=== PATIENT | male | born 1950 | race Caucasian/White ===

== ENCOUNTER → 2016-12-03 | Outpatient (CLI) | payer MEDICARE, BC ==
[~2016-12-03] MED LIST: AMLO5TAB4 PO; VALS1TAB82 PO
== END | disposition home or self-care (01) ==
LOC: HKI 09:55 → MERGE 09:55
PROVIDERS: ATTEND Orthopaedic Surgery
DX: M25.552 Pain in left hip (principal); M16.12 Unilateral primary osteoarthritis, left hip
CPT/HCPCS: G0463

== ENCOUNTER 2016-12-11 08:41 | Inpatient (IN) | payer MEDICARE, BC ==
[~2016-12-11] VITALS: Ht 172.7 cm; Wt 72.2 kg
[2016-12-11] VITALS (20 sets, daily range): BP systolic 101–156; BP diastolic 57–86; PULSE 58–80; RESP 10–21; Ht 172.7 cm; Wt 72.2 kg
[~2016-12-11 08:41] MED LIST changes: +BUPIVACAINE LIPOSOME/PF 266 MG/20 ML VIAL INFIL SCH; +CEFAZOLIN 1 GM INJ ONE; +CEFAZOLIN 2GM/50 ML (PMX) 50 ML X1 BEFORE INCISION IVPB SCH; +CELECOXIB 400 MG PO X1 DOSE PO SCH; +DEXAMETHASONE 4 MG/ML 1 ML INJ ONE; +EXPAREL NOTE (BUPIVICAINE LIPOSOMAL) XX SCH; +FENTAnyl 50 MCG/ML VIAL ONE; +GLYCOPYRROLATE 0.4 MG INJ ONE; +LIDOCAINE 2% (SDV) 5 ML INJ ONE; +MIDAZOLAM 1 MG/ML 2 ML INJ ONE; +NEOSTIGMINE 3 MG/3 ML SYRINGE ONE; +ONDANSETRON 4 MG INJ ONE; +PAIN COCKTAIL-CEFUROXIME IRR SCH; +PREGABALIN 300 MG PO X1 PO SCH; +PROPOFOL 20 ML ONE; +ROCURONIUM 50 MG INJ ONE; +SOD CHLORIDE 0.9% IV SCH; +SOD CHLORIDE 0.9% IVPB SCH; +SUCCINYLCHOLINE CHLORIDE 100 MG/5 ML SYG IV ONE; +TRANEXAMIC ACID IV SCH; +TRANEXAMIC ACID IVPB SCH; +oxyCODONE (CR) 10 MG TAB [oxyCONTIN] X1 DOSE PO SCH; +traMADOL 50 MG TAB X 1 DOSE PO SCH
[2016-12-11] MEDS ORDERED: FOLI-49 PO (09:02)
[2016-12-11] MEDS ORDERED: ATOR40TA68 PO (09:02)
[2016-12-11] MEDS ORDERED: METF500T4 PO (09:03)
[2016-12-11] MEDS ORDERED: POLYMYXIN B 500000 UNIT INJ ONE (10:03)
[2016-12-11] MEDS ORDERED: VANCOMYCIN 1 GM INJ ONE (10:03)
--- NOTE | 2016-12-11 10:07 | HPN ---
Date/Time of Note Date/Time of Note DATE: 12/11/16 TIME: 10:07 Interval H&P Admission Note Pt. seen H&P reviewed: No system changes No change from H&P on 12/04/16 by YANIV Orta ERIK N. MD December 11, 2016 10:07
[2016-12-11] MEDS ORDERED: hydrALAzine 20 MG INJ ONE (11:08)
[2016-12-11] MEDS ORDERED: LABETALOL HCL 20MG INJ ONE (11:11)
[2016-12-11] MEDS ORDERED: BACITRACIN 50000 UNITS INJ IRR ONE (11:38)
[2016-12-11] MEDS ORDERED: FUROSEMIDE 20 MG INJ ONE (12:31)
--- NOTE | 2016-12-11 13:09 | OPR ---
Date/Time of Note Date/Time of Note DATE: 12/11/16 TIME: 13:08 Operative Report Free Text/Dictation Dictation # [id number] Procedure Date: December 11, 2016 Preoperative Diagnosis Left Hip OA Postoperative Diagnosis Same Operation Performed Left Anterior CANELO Surgeon: JACK LEWIS MD mortgage loan assistant: UMM C[place]AND PA-C Anesthesia: general, spinal Anesthesiologist: SANDEEP ECHEVERRIA MD Estimated Blood Loss: 250 - 300 ml's Specimens Femoral Head Tubes/Drains Hemovac x 1 Complications: None Pt Condition Post Procedure: stable Disposition: PACU JACK LEWIS MD December 11, 2016 13:09
[2016-12-11] MEDS ORDERED: MAGNESIUM HYDROXIDE 30ML CUP PO PRN (13:30)
[2016-12-11] MEDS ORDERED: BISACODYL 10 MG SUPP PR PRN (13:30)
[2016-12-11] MEDS ORDERED: NA PHOSPHATE/BIPHOS 133 ML ENEMA PR PRN (13:30)
[2016-12-11] MEDS ORDERED: HYDROCODONE/APAP (5/325) TAB PO PRN ×2 (13:30)
[2016-12-11] MEDS ORDERED: ONDANSETRON 4 MG INJ IV PRN (13:30)
[2016-12-11] MEDS ORDERED: DIPHENHYDRAMINE 25 MG CAP PO PRN (13:30)
[2016-12-11] MEDS ORDERED: HYDROmorphONE 1 MG/ML SYG IV PRN (13:30)
--- NOTE | 2016-12-11 13:33 | RADRPT ---
PROCEDURE: Intraoperative imaging of the left hip with fluoroscopy. CLINICAL INDICATION: Left hip pain. Intraoperative. TECHNIQUE: 16 images of the left hip were obtained in the operating room with an image intensifier . No radiologist was in attendance. 0.8 minutes of fluoroscopy time was used. COMPARISON: No prior study is available for comparison. FINDINGS: Images demonstrate placement of a total left hip arthroplasty. IMPRESSION: 1. Satisfactory intraoperative imaging of the left hip. RPTAT: QQ .Duglas Simms MD, MD Date Time Electronically viewed and signed by .Duglas Simms MD, on 12/11/2016 13:32 .R/
--- NOTE | 2016-12-11 13:40 | PN ---
Date/Time of Note Date/Time of Note DATE: 12/11/16 TIME: 13:38 Assessment/Plan Lines/Catheters IV Catheter Type (from Nrsg): Peripheral IV Assessment/Plan Assessment/Plan Stable in PACU, s/p left anterior CANELO -continue abx until drain removed -pain meds as needed -ASA/SCDs for DVT prophylaxis -OOB with PT -check AM labs -monitor drain -d/c sebastian in AM XR of the left hip shows good alignment with no evidence of fracture or dislocation Subjective 24 Hr Interval Summary Stable in PACU. Moving extremities. Denies pain. Exam/Review of Systems Vital Signs Vitals Vital Signs Date Time Temp Pulse Resp B/P Pulse Ox O2 Delivery O2 Flow Rate FiO2 12/11/16 13:22 98.2 12/11/16 08:45 77 16 156/86 96 Room Air Exam Free Text/Dictation Hemovac: minimal Dressing dry Incision clean, dry, and intact without redness or drainage 12/12 Quadriceps, Tibialis Anterior, EHL, Gastroc, Soleus, Peroneals Normal sensation Palpable DT/PT, CR <2 sec No distal edema UMM C[facility]AND PA-C December 11, 2016 13:40
--- NOTE | 2016-12-11 13:41 | RADRPT ---
PROCEDURE: XR Pelvis. CLINICAL INDICATION: Pelvic pain. TECHNIQUE: Single AP view of the pelvis. COMPARISON: Intraoperative imaging of the left hip done earlier the same day. FINDINGS: The right hip is unremarkable. There is a new left hip total arthroplasty which appears satisfactor y. Left lateral skin sejal and surgical drain are noted. There is gas in the soft tissues overly ing the left hip. A Crawley catheter is present in the bladder. There is no lytic lesion. The upper pelvis is not included on the image. IMPRESSION: 1. Satisfactory postoperative appearance of the left hip. RPTAT: QQ .Duglas Simms MD, MD Date Time Electronically viewed and signed by .Duglas Simms MD, on 12/11/2016 13:40 .R/
--- NOTE | 2016-12-11 13:49 | OPR ---
DATE OF OPERATION: 12/11/2016 PREOPERATIVE DIAGNOSIS: Left hip osteoarthritis. POSTOPERATIVE DIAGNOSIS: Left hip osteoarthritis. OPERATION PERFORMED: Left anterior total hip arthroplasty. SURGEON: Jack Thomas MD PRINCIPAL ENGINEER: MARTINA Roldan COMPONENTS USED: DePuy size 52 mm Gription Macy cup, 52/36 neutral AltrX polyethylene liner, si ze 4 standard Actis stem, 36+8.5 ceramic head. ANESTHESIA: Spinal plus general endotracheal intubation plus periarticular injection. ANESTHESIOLOGIST: Dr. Ramirez. ESTIMATED BLOOD LOSS: 300 mL. INTRAVENOUS FLUIDS: 1800 mL crystalloid. SPECIMENS: Femoral head. DRAINS: Hemovac x1. COMPLICATIONS: None. DISPOSITION: Patient tolerated the procedure well and was taken to the recovery room in stable [facility]. INDICATIONS: The patient is a 66-year-old gentleman who has had progressive worsening pain in the l eft hip with radiographic evidence of severe osteoarthritis. He has failed nonsurgical means of radha atment to control his pain including activity modifications, pain medications and ambulatory assist devices. Despite these measures, he has had worsening pain and I felt he would benefit from a total hip arthroplasty through an anterior approach. The risks, benefits, and alternatives of the procedure were explained in detail to the patient. I e xplained the risks of the surgery to include, but not be limited to: bleeding and possible need for blood transfusion; infection; pain; stiffness; neurovascular injury with possible numbness, weakness , and/or paralysis anywhere from the hip down to the toes; fracture; instability; dislocation; leg l ength inequality; wear and/or loosening of the prosthesis and possible need for future revision; blo od clots; pulmonary embolism; and anesthetic complications such as heart attack, stroke, GI bleed, p neumonia, and/or . Ample time was allowed for the patient to ask questions, all of which were addressed and answered. The patient understood the risks involved and wished to proceed. Informed c onsent was signed prior to the procedure. PROCEDURE: The patient's left hip was initialed with a marking pen in the preoperative area to ident pawan the correct operative site. The patient was brought to the operating room and transferred from the [facility] to the [facility] where a spinal anesthetic was administered. The patient was t hen anesthetized and intubated. A Crawley catheter was placed. Both feet were placed into well-padde d boots which were then placed into the leg holders of the traction booms. A timeout was performed to confirm that the left side was the correct operative site. The patient was given 2 g of intraven ous Ancef within one hour prior to the procedure. The operative hip was prepped and draped in the u sual sterile fashion. A 10 cm oblique incision was made over the anterior aspect of the hip and carried down through subcu taneous tissue and fat with sharp dissection. The tensor fascia taiwo was incised along the length o f the wound. The tensor fascia muscle was retracted laterally and the sartorius medially. The anter ior circumflex vessels were identified and tied off with 2-0 silk suture and coagulated with the Frodio octavio Link senior private client advisor. The rectus femoris was elevated off the anterior capsule and an anterior capsu lectomy performed. A femoral neck osteotomy was made and the head removed from the acetabulum. The acetabulum was denuded of cartilage circumferentially, as was the femoral head. Retractors were pl aced around the acetabulum. The remnants of the labrum and ligamentum teres were excised. I reamed the acetabulum to the medial wall and then went into an anatomic position and increased the reamer size in 2 mm increments until I got a good bite and was down to bleeding subchondral bone. The Macy cup was opened and impacted into the acetabulum and sat flush circumferentially, gettin g a good bite. C-arm imaging showed it had about 40 to 45 degrees of abduction and 20 degrees of ant eversion. The real liner was opened and impacted into the acetabulum and sat flush circumferentially . Attention was turned towards the femur. The operative leg was carefully lowered to the floor with the leg adducted. The foot was then exter ray rotated to approximately 110 degrees. A posteromedial release was performed to optimize expos ure. The femoral hook was placed underneath the proximal femur and the hydraulic lift was then used to elevate the femur up out of the wound. The ti cutter osteotome was used to remove the remai lukasz overhanging greater trochanter. The femur was then broached, going up in one size increments u ntil it sat flush with the neck cut and a stable fit was achieved. The trial neck and head were ass embled and reduced into the acetabulum. Fluoroscopic imaging showed the components to be in good pos ition and the leg lengths and offsets to be equal. At this point, the trial was dislocated and the trial broach removed. The canal was irrigated and d ried. The real stem was opened and impacted into the femur. The trunnion was irrigated and dried, a nd the real femoral head was impacted onto the trunnion, and reduced into the acetabulum. The soft tissues were infiltrated with a mixture of 150 mg of 0.5% Bupivacaine, 8 mg of Duramorph, 3 00 mcg of epinephrine, 30 mg of Toradol, 100 mcg of clonidine, 750 mg of cefuroxime and 86 mL of nor mal saline, followed by an injection of 266 mg of liposomal Bupivacaine. At this point the hip was irrigated with a mixture of betadine/saline and then antibiotic saline with pulsatile lavage. A Hem ovac drain was placed in the deep portion of the wound and brought out the anterolateral thigh. Ther e was good hemostasis. The tensor fascia taiwo was repaired with a running #1 Vicryl. The deep fat layer was irrigated and closed with 2-0 Stratafix and the subcutaneous layer closed with 3-0 Vicryl and the skin was closed with sejal and then sealed with Dermabond. The drain was secured with 3-0 nylon. The sponge and needle counts were correct at the end of the case. The wound was covered with an occ lusive dressing. The patient was awakened, extubated, and taken to the recovery room in stable cond ition. Dictated By: JACK GUALLPA/PAPITO Conf#: [id number] DID#: [id number]
[2016-12-11 14:27] LABS: HEMATOCRIT 41.1 % (42.0-52.0); HEMOGLOBIN 14.1 g/dl (14.0-18.0)
[2016-12-11] MEDS ORDERED: BACITRACIN 50000 UNITS INJ ONE (14:56)
[2016-12-11 15:04] LABS: CALCIUM 8.9 mg/dl (8.4-10.2); CREATININE 0.95 mg/dl (0.61-1.24); POTASSIUM 3.4 mmol/L (3.5-5.1)
[2016-12-11 15:18] LABS: ADD UMIC NO; URINE BILIRUBIN (Dip) NEGATIVE (NEGATIVE); URINE BLOOD (Dip) NEGATIVE (NEGATIVE); URINE COLOR LT. YELLOW (YELLOW); URINE GLUCOSE (Dip) NEGATIVE (NEGATIVE); URINE KETONES (Dip) NEGATIVE (NEGATIVE); URINE LEUKOCYTE ESTERASE (Dip) NEGATIVE (NEGATIVE); URINE NITRITE (Dip) NEGATIVE (NEGATIVE); URINE TOTAL PROTEIN (Dip) NEGATIVE (NEGATIVE); URINE UROBILINOGEN (Dip) 0.2 E.U./dL (0.1-1.0)
[2016-12-11] MEDS ORDERED: TRANEXAMIC ACID 720 MG in SOD CHLORIDE 0.9% 100 ML IVPB ONE ×2 (16:30→19:30)
[2016-12-11] MEDS: traMADol 50 MG TAB PO SCH ×3 (18:00→23:49)
[2016-12-11] MEDS: LACTATED RINGER'S 1,000 ML IV SCH ×2 (18:03→18:06)
[2016-12-11] MEDS: PANTOPRAZOLE (EC) 40 MG TAB PO SCH (18:18)
[2016-12-11] MEDS: metFORMIN 500 MG TAB PO SCH (18:18)
[2016-12-11] MEDS ORDERED: DEXTROSE 50% 50 ML SYRINGE IV PRN ×2 (18:30)
[2016-12-11] MEDS ORDERED: GLUCOSE GEL 15 GRAM TUBE PO PRN ×2 (18:30)
[2016-12-11] MEDS ORDERED: GLUCAGON 1 MG INJ IM PRN (18:30)
[2016-12-11] MEDS ORDERED: POTASSIUM CHLORIDE (SR) 10 MEQ TAB PO ONE (18:30)
[2016-12-11] MEDS ORDERED: GLUCOSE GEL 15 GRAM TUBE BUCCAL PRN (18:30)
[2016-12-11] MEDS: DOCUSATE SODIUM 100 MG CAP PO SCH (20:41)
[2016-12-11] MEDS: PREGABALIN 50 MG CAP PO SCH (20:41)
[2016-12-11] MEDS: ATORVASTATIN 40 MG TAB PO SCH (20:42)
[2016-12-11] MEDS: INSULIN ASPART [NOVOLOG] 3 ML PEN SC SCH (21:00)
--- NOTE | 2016-12-11 21:02 | CONS ---
DATE OF ADMISSION: 12/11/2016 DATE OF CONSULTATION: 12/11/2016 TYPE OF CONSULTATION: Postoperative medical. Dr. Smith, thank you very much for allowing me to evaluate the above patient who just underwent lef t hip replacement. HISTORICAL EVENTS: As you well know, this patient has had progressive disabling pain involving his left hip, and for this, elected to proceed with surgery. On the orthopedic floor, he is comfortable without cough, wheezing, shortness of breath, nausea, vomiting, abdominal or chest pain. PAST MEDICAL HISTORY Includes: 1. Hypertension. 2. Hyperlipidemia. 3. Former smoker. 4. No history of diabetes. 5. Elevated sugar. ALLERGIES: NONE. MEDICATIONS 1. Amlodipine 5 mg per day. 2. Diovan 320/25 per day. 3. Folic acid 1 mg per day. 4. Lipitor 40 mg per day. 5. Metformin 500 mg b.i.d. 6. Norvasc 5 mg daily. PHYSICAL EXAMINATION GENERAL: A spry male, in no acute distress. VITAL SIGNS: BP 122/80, pulse 70, respirations are 20, he was afebrile. HEENT: Eyes, extraocular muscles were full. Nose, mouth, and throat were normal. NECK: Supple. There was no jugular venous distention, thyroid enlargement, adenopathy. Carotids 2 +. LUNGS: Clear. HEART: Rhythm regular. No murmur. No 3rd or 4th sound. ABDOMEN: Nontender. Liver and spleen were not palpable. No masses or tenderness were noted. EXTREMITIES: No edema. Calves nontender. IMPRESSION AND PLAN 1. Stable postop left hip replacement. 2. History of diabetes, history of elevated sugar. Sugars will be monitored while being maintained on metformin. 3. History of hypertension. We will continue ARB without diuretic. 4. We will follow him daily for signs and symptoms of thromboembolic disease, despite appropriate d eep venous thrombosis prophylaxis. Dictated By: HEATHER ESQUIVEL MD MR/NTS Conf#: [id number] DID#: [id number] CC: JACK LEWIS MD;*EndCC*
[2016-12-12] MEDS ORDERED: ACCU-CHEK XX SCH (02:00)
[2016-12-12] MEDS: ACCU-CHEK XX SCH ×2 (02:00→17:23)
[2016-12-12] MEDS: LACTATED RINGER'S 1,000 ML IV SCH ×2 (02:55→13:00)
[2016-12-12 03:38] VITALS: BP 102/65; PULSE 57; RESP 16
[2016-12-12] MEDS: PANTOPRAZOLE (EC) 40 MG TAB PO SCH ×2 (05:25→17:24)
[2016-12-12] MEDS: traMADol 50 MG TAB PO SCH ×4 (05:26→23:46)
[2016-12-12 05:54] LABS: HEMATOCRIT 38.1 % (42.0-52.0); HEMOGLOBIN 12.6 g/dl (14.0-18.0)
[2016-12-12 06:08] LABS: POTASSIUM 3.9 mmol/L (3.5-5.1)
[2016-12-12 06:09] LABS: MAGNESIUM 1.6 mg/dl (1.7-2.5); PHOSPHORUS 4.3 mg/dl (2.5-4.9)
[2016-12-12 06:11] LABS: CREATININE 0.84 mg/dl (0.61-1.24)
[2016-12-12 06:12] LABS: CALCIUM 8.3 mg/dl (8.4-10.2)
[2016-12-12 07:00] VITALS: BP 104/62; RESP 20
[2016-12-12] MEDS ORDERED: INSULIN ASPART [NOVOLOG] 3 ML PEN SC SCH (07:20)
[2016-12-12] MEDS: INSULIN ASPART [NOVOLOG] 3 ML PEN SC SCH ×4 (07:50→21:00)
--- NOTE | 2016-12-12 08:04 | PN ---
Date/Time of Note Date/Time of Note DATE: 12/12/16 TIME: 08:01 Assessment/Plan Lines/Catheters IV Catheter Type (from Nrsg): Peripheral IV Crawley in Place (from Nrsg): No Assessment/Plan Assessment/Plan Stable POD #1, s/p left anterior CANELO -discharge antibiotics -pain meds as needed -ASA/SCDs for DVT prophylaxis -OOB with PT -drain removed -check AM labs -will likely will discharge home tomorrow Subjective 24 Hr Interval Summary No acute overnight events. Denies any pain. Did not start PT yesterday. Moving all extremities. VSS, afebrile. Will plan to go home upon discharge. Exam/Review of Systems Vital Signs Vitals Vital Signs Date Time Temp Pulse Resp B/P Pulse Ox O2 Delivery O2 Flow Rate FiO2 12/12/16 07:00 97.7 63 20 104/62 95 12/12/16 03:38 Nasal Cannula Intake and Output 12/11/16 12/11/16 12/12/16 15:00 23:00 07:00 Intake Total 2007.25 ml 280 ml 1440 ml Output Total 650 ml 1000 ml 1200 ml Balance 1357.25 ml -720 ml 240 ml Exam Free Text/Dictation Hemovac: 100cc Dressing dry Incision clean, dry, and intact without redness or drainage 12/12 Quadriceps, Tibialis Anterior, EHL, Gastroc, Soleus, Peroneals Normal sensation Palpable DT/PT, CR <2 sec No distal edema Results Result Diagram: 12/12/16 0446 12/12/16 0446 UMM C[place]AND PA-C December 12, 2016 08:04
--- NOTE | 2016-12-12 08:12 | PDOCDIS ---
Discharge Instructions DIAGNOSIS Discharge Diagnosis: s/p left anterior CANELO CONDITION Patient Condition: Good HOME CARE INSTRUCTIONS: Diet Instructions: RegularSpecial Diet: 2000 ADA ACTIVITY: Activity Restrictions: Slowly Increase Activity Rest between Activity Avoid heavy lifting Do not operate Machinery Do not operate Power Tool Avoid Heavy Housework Keep Limb Elevated Bathing Restrictions: Shower FOLLOW UP/APPOINTMENTS Appointments follow up in the office on 12/22/16 OTHER ORDERS: Other Orders: S/P Anterior CANELO Physical Therapy: Three times per week at home x 2 weeks Daily in Rehab/SNF WB STATUS: WBAT Strengthening exercises for both upper and un-operated lower extremities. 1. Gait training with front wheeled walker 2. Wide base gait, no pivot turns. 3. Abductor strengthening. 4. Quadriceps and hamstring strengthening. 5. May switch to cane in contra lateral hand 6 weeks after surgery. 6. Physical Therapy can open case if nursing is not available. 7. Ice Packs while at rest to surgical wound for 20 minutes, 3 times/day. 8. Patient requires mobile SCDs to reduce risk of developing DVT following CANELO. Patient will use the mobile SCDs for 30 days postoperatively. Hip Precautions: No posterior hip precautions. Bathing assistance by home health aide twice weekly if Medicare patient. Occupational Therapy: Evaluation for assistive devices and ADL training. Wound Care: Keep incision dry & covered with Tegaderm until first visit with Dr. Thomas Anticoagulation Orders: Enteric Coated Aspirin 325 mg po bid x 6 weeks from date of surgery Follow-up:Call for an appointment with Dr. Thomas in 1 week after discharged from hospital at DME Orders: CRIAG, 3-in-1 Commode, Mobile SCDs UMM C[place]AND PA-C December 12, 2016 08:12
[2016-12-12] MEDS ORDERED: TRAM50TA2 PO (08:13)
[2016-12-12] MEDS ORDERED: PANT40TA4 PO (08:13)
[2016-12-12] MEDS ORDERED: HYDR-906 PO (08:13)
[2016-12-12] MEDS ORDERED: ASPI325T32 PO (08:16)
--- NOTE | 2016-12-12 08:34 | CONS ---
Date/Time of Note Date/Time of Note DATE: 12/12/16 TIME: 08:33 Assessment/Plan Assessment/Plan Additional Assessment/Plan 1. Left knee replacement 2. DM, sugars well controlled 3. HBP, controlled. 4. Low Mag, will replete Consultation Date/Type/Reason Admit Date/Time December 11, 2016 at 08:41 Initial Consult Date Detailed Summary Respiratory: No shortness of breath Cardiovascular: No chest pain Gastrointestinal: no complaints Genitourinary: no complaints Musculoskeletal: bone/joint pain (mildleft knee pain) Exam/Review of Systems Vital Signs Vitals Vital Signs Date Time Temp Pulse Resp B/P Pulse Ox O2 Delivery O2 Flow Rate FiO2 12/12/16 07:00 97.7 63 20 104/62 95 12/12/16 03:38 Nasal Cannula Intake and Output 12/11/16 12/11/16 12/12/16 15:00 23:00 07:00 Intake Total 2007.25 ml 280 ml 1440 ml Output Total 650 ml 1000 ml 1200 ml Balance 1357.25 ml -720 ml 240 ml Exam Neck: No jvd Respiratory: clear to auscultation Cardiovascular: regular rate and rhythm Gastrointestinal: soft Extremities: No edema (and no calf tend) Results Result Diagram: 12/12/16 0446 12/12/16 0446 Results 24 hrs Laboratory Tests Test 12/11/16 09:14 12/11/16 13:15 12/11/16 14:09 12/11/16 20:51 Bedside Glucose 125 166 Urine Color LT. YELLOW Urine Clarity CLEAR Urine pH 5.5 Urine Specific [place] 1.010 Urine Ketones NEGATIVE Urine Nitrite NEGATIVE Urine Bilirubin NEGATIVE Urine Urobilinogen 0.2 E.U./dL Urine Leukocyte Esterase NEGATIVE Urine Hemoglobin NEGATIVE Urine Glucose NEGATIVE Urine Total Protein NEGATIVE Hemoglobin 14.1 Hematocrit 41.1 L Sodium Level 141 Potassium Level 3.4 L Chloride Level 101 Carbon Dioxide Level 27 Anion Gap 16 Blood Urea Nitrogen 19 Creatinine 0.95 Glucose Level 153 Calcium Level 8.9 Test 12/12/16 04:46 12/12/16 08:07 Hemoglobin 12.6 L Hematocrit 38.1 L Sodium Level 137 Potassium Level 3.9 Chloride Level 101 Carbon Dioxide Level 27 Anion Gap 13 Blood Urea Nitrogen 17 Creatinine 0.84 Glucose Level 140 Calcium Level 8.3 L Phosphorus Level 4.3 Magnesium Level 1.6 L Bedside Glucose 114 Medications Medications Current Medications Lactated Ringer's (Lr) 1,000 ml @ 100 mls/hr Q10H IV Last administered on 02:55; Admin Dose 100 MLS/HR; Start 12/11/16 at 07:00 Amlodipine Besylate (Norvasc) 5 mg DAILY PO ; Start 12/12/16 at 09:00 Atorvastatin Calcium (Lipitor) 40 mg QHS PO Last administered on 12/11/16 20:42 ; Admin Dose 40 MG; Start 12/11/16 at 21:00 Folic Acid (Folic Acid) 1 mg DAILY PO ; Start 12/12/16 at 09:00 Pregabalin (Lyrica) 50 mg BID PO Last administered on 12/11/16 20:41; Admin Dose 50 MG; Start 12/11/16 at 21:00 Pantoprazole (Protonix Tab) 40 mg BID@06,18 PO Last administered on 12/12/16 05 :25; Admin Dose 40 MG; Start 12/11/16 at 18:00 Celecoxib (Celebrex) 200 mg DAILY PO ; Start 12/12/16 at 09:00 Tramadol HCl (Ultram) 50 mg Q6 PO Last administered on 12/12/16 05:26; Admin Dose 50 MG; Start 12/11/16 at 12:00; Stop 12/14/16 at 11:59 Acetaminophen/ Hydrocodone Bitart ([place] (5/325)) 1 tab Q4H PRN PO PAIN LEVEL 1 -3; Start 12/11/16 at 13:30 Acetaminophen/ Hydrocodone Bitart ([place] (5/325)) 2 tab Q4H PRN PO PAIN LEVEL 4 -7; Start 12/11/16 at 13:30 Hydromorphone HCl (Dilaudid) 1 mg Q3H PRN IV PAIN LEVEL 8-10; Start 12/11/16 at 13:30 Ondansetron HCl (Zofran Inj) 4 mg Q6H PRN IV NAUSEA AND/OR VOMITING; Start 12/11 at 13:30 Bisacodyl (Dulcolax Supp) 10 mg Q12H PRN DE CONSTIPATION; Start 12/11/16 at 13: 30 Magnesium Hydroxide (Milk Of Mag) 30 ml BID PRN PO CONSTIPATION; Start 12/11/16 at 13:30 Sodium Biphosphate/ Sodium Phosphate (Fleet Enema) 133 ml DAILY PRN DE CONSTIPATION; Start 12/11/16 at 13:30 Docusate Sodium (Colace) 100 mg BID PO Last administered on 12/11/16t 20:41; Admin Dose 100 MG; Start 12/11/16 at 21:00 Diphenhydramine HCl (Benadryl) 25 mg Q6H PRN PO PRURITUS; Start 12/11/16 at 13: 30 Valsartan (Diovan) 320 mg DAILY PO ; Start 12/12/16 at 09:00 Hydrochlorothiazide (Hydrochlorothiazide) 25 mg DAILY PO ; Start 12/12/16 at 09: 00 Miscellaneous Information 1 ea NOTE XX ; Start 12/11/16 at 18:30 Glucose (Glutose) 15 gm Q15M PRN PO DECREASED GLUCOSE; Start 12/11/16 at 18:30 Glucose (Glutose) 22.5 gm Q15M PRN PO DECREASED GLUCOSE; Start 12/11/16 at 18:30 Dextrose (D50w Syringe) 25 ml Q15M PRN IV DECREASED GLUCOSE; Start 12/11/16 at 18:30 Dextrose (D50w Syringe) 50 ml Q15M PRN IV DECREASED GLUCOSE; Start 12/11/16 at 18:30 Glucagon (Glucagen) 1 mg Q15M PRN IM DECREASED GLUCOSE; Start 12/11/16 at 18:30 Glucose (Glutose) 15 gm Q15M PRN BUCCAL DECREASED GLUCOSE; Start 12/11/16 at 18: 30 Diagnostic Test (Pha) (Accu-Chek) 1 ea 02 XX ; Start 12/12/16 at 02:00 Aspirin (Ecotrin) 325 mg BID PO ; Start 12/12/16 at 09:00 HEATHER ESQUIVEL MD December 12, 2016 08:34
[2016-12-12] MEDS: ASPIRIN (EC) 325 MG TAB PO SCH ×2 (08:56→20:08)
[2016-12-12] MEDS: DOCUSATE SODIUM 100 MG CAP PO SCH ×2 (08:57→20:07)
[2016-12-12] MEDS: FOLIC ACID 1 MG TAB PO SCH (08:57)
[2016-12-12] MEDS: metFORMIN 500 MG TAB PO SCH ×2 (08:57→17:23)
[2016-12-12] MEDS: PREGABALIN 50 MG CAP PO SCH ×2 (08:57→20:08)
[2016-12-12] MEDS: HYDROCHLOROTHIAZIDE 25 MG TAB PO SCH (09:00)
[2016-12-12] MEDS ORDERED: CELECOXIB 200 MG CAP PO SCH (09:00)
[2016-12-12] MEDS: AMLODIPINE 5 MG TAB PO SCH (09:00)
[2016-12-12] MEDS: VALSARTAN 160 MG TAB PO SCH (09:00)
[2016-12-12] MEDS ORDERED: NON-FORMULARY/PATIENT OWN MED (Valsartan-Hydrochlorothiazide (Valsartan-HCTZ) 1 TAB) PO SCH (09:00)
[2016-12-12] MEDS ORDERED: MAGNESIUM SULFATE 3 GM in SOD CHLORIDE 0.9% 100 ML IVPB ONE (09:00)
[2016-12-12 10:58] VITALS: BP 106/63; PULSE 58; RESP 18
[2016-12-12 10:58] LABS: ADD UMIC NO; URINE BILIRUBIN (Dip) NEGATIVE (NEGATIVE); URINE BLOOD (Dip) NEGATIVE (NEGATIVE); URINE COLOR LT. YELLOW (YELLOW); URINE GLUCOSE (Dip) NEGATIVE (NEGATIVE); URINE KETONES (Dip) NEGATIVE (NEGATIVE); URINE LEUKOCYTE ESTERASE (Dip) NEGATIVE (NEGATIVE); URINE NITRITE (Dip) NEGATIVE (NEGATIVE); URINE TOTAL PROTEIN (Dip) NEGATIVE (NEGATIVE); URINE UROBILINOGEN (Dip) 0.2 E.U./dL (0.1-1.0)
[2016-12-12 20:03] VITALS: BP 125/64; RESP 18
[2016-12-12] MEDS: ATORVASTATIN 40 MG TAB PO SCH (20:07)
[2016-12-13 05:12] LABS: HEMATOCRIT 35.4 % (42.0-52.0); HEMOGLOBIN 11.7 g/dl (14.0-18.0)
[2016-12-13 05:38] LABS: POTASSIUM 3.7 mmol/L (3.5-5.1)
[2016-12-13 05:39] LABS: PHOSPHORUS 3.3 mg/dl (2.5-4.9)
[2016-12-13 05:40] LABS: MAGNESIUM 2.3 mg/dl (1.7-2.5)
[2016-12-13 05:41] LABS: CALCIUM 8.1 mg/dl (8.4-10.2); CREATININE 0.87 mg/dl (0.61-1.24)
[2016-12-13] MEDS: PANTOPRAZOLE (EC) 40 MG TAB PO SCH (06:47)
[2016-12-13] MEDS: traMADol 50 MG TAB PO SCH ×2 (06:48→12:22)
[2016-12-13] MEDS: INSULIN ASPART [NOVOLOG] 3 ML PEN SC SCH ×2 (07:50→11:40)
[2016-12-13 08:52] VITALS: BP 122/76; PULSE 63; RESP 20
[2016-12-13] MEDS: FOLIC ACID 1 MG TAB PO SCH (08:54)
[2016-12-13] MEDS: metFORMIN 500 MG TAB PO SCH (08:54)
[2016-12-13] MEDS: ASPIRIN (EC) 325 MG TAB PO SCH (08:54)
[2016-12-13] MEDS: DOCUSATE SODIUM 100 MG CAP PO SCH (08:54)
[2016-12-13] MEDS: HYDROCHLOROTHIAZIDE 25 MG TAB PO SCH (08:55)
[2016-12-13] MEDS: VALSARTAN 160 MG TAB PO SCH (08:55)
[2016-12-13] MEDS: AMLODIPINE 5 MG TAB PO SCH (08:56)
[2016-12-13] MEDS: LACTATED RINGER'S 1,000 ML IV SCH ×2 (09:00→09:02)
[2016-12-13] MEDS: PREGABALIN 50 MG CAP PO SCH (09:01)
--- NOTE | 2016-12-13 09:01 | PN ---
Date/Time of Note Date/Time of Note DATE: 12/13/16 TIME: 08:57 Assessment/Plan VTE Prophylaxis VTE Prophylaxis Intervention: ambulation, SCD's, other (Aspirin 325 mg twice daily) Lines/Catheters IV Catheter Type (from Nrsg): Peripheral IV Crawley in Place (from Nrsg): No Assessment/Plan Assessment/Plan -Pain Meds as needed -Dress change performed today -ASA for DVT Prophylaxis outpatient discussed. -Continue monitoring as outpatient on discharge -Follow-up at scheduled postop outpatient appointment with Dr. Smith at 10 days postop or sooner if there is any issue. -Tegaderm dressings given with specific instructions to use as outpatient to keep wound dry until sejal are moved around 10 days. -Anterior hip precautions discussed -Patient Stable -Discharge to Home with home health Subjective 24 Hr Interval Summary 58-year-old male postop day 2 status post left total hip arthroplasty via anterior route. Patient denies any pain complaints. Denies any complications status post surgery. Denies any chest pain/tightness, shortness of breath, calf pain. Up and out of bed with use of front wheeled walker. Plan is to discharge home today. Constitutional: no complaints Pain Control: well controlled Exam/Review of Systems Vital Signs Vitals Vital Signs Date Time Temp Pulse Resp B/P Pulse Ox O2 Delivery O2 Flow Rate FiO2 12/13/16 08:52 98.7 63 20 122/76 99 Room Air Exam Free Text/Dictation -Hemovac: Removed -Incision: Clean, Dry and Intact without any redness or drainage -Thigh soft -5/5 Quadriceps, Tibialis Anterior, EHL Gastrocnemius/Soleus and Peroneals -Normal Sensation -Palpable DP/PT, Capillary Refill <2 secs -No Distal Edema -Negative Analisa Sign/No calf pain -Toes Freely Movable Constitutional: alert, oriented, well developed Results Result Diagram: 12/13/16 0443 12/13/163 CHLOÉ POLK PA-C December 13, 2016 09:00 -Palpable DP/PT, Capillary Refill <2 secs -No Distal Edema -Negative Analisa Sign/No calf pain -Toes Freely Movable Constitutional: alert, oriented, well developed Results Result Diagram: 12/13/163 12/13/163 CHLOÉ POLK PA-C December 13, 2016 09:00
[2016-12-13] MEDS: ACCU-CHEK XX SCH (09:02)
--- NOTE | 2016-12-13 11:04 | CONS ---
Date/Time of Note Date/Time of Note DATE: 12/13/16 TIME: 11:02 Assessment/Plan Assessment/Plan Additional Assessment/Plan 1. Stable post op left hip replacement, OK to dc per ortho and PT 2. DM, sugar control is acceptable Consultation Date/Type/Reason Admit Date/Time December 11, 2016 at 08:41 Detailed Summary Respiratory: No cough, No shortness of breath Cardiovascular: No chest pain Gastrointestinal: no complaints Genitourinary: no complaints Musculoskeletal: bone/joint pain (mild left hip pain) Exam/Review of Systems Vital Signs Vitals Vital Signs Date Time Temp Pulse Resp B/P Pulse Ox O2 Delivery O2 Flow Rate FiO2 12/13/16 08:52 98.7 63 20 122/76 99 Room Air Intake and Output 12/12/16 12/12/16 12/13/16 15:00 23:00 07:00 Intake Total 506 ml 1200 ml 450 ml Output Total 500 ml 600 ml Balance 506 ml 700 ml -150 ml Exam Neck: No jvd Respiratory: clear to auscultation Cardiovascular: regular rate and rhythm Gastrointestinal: soft Extremities: No edema (and no calf tend) Results Result Diagram: 12/13/16 0443 12/13/16 0443 Results 24 hrs Laboratory Tests Test 12/12/16 12:15 12/12/16 17:22 12/12/16 20:10 12/13/16 04:43 Bedside Glucose 114 133 106 Hemoglobin 11.7 L Hematocrit 35.4 L Sodium Level 139 Potassium Level 3.7 Chloride Level 102 Carbon Dioxide Level 27 Anion Gap 14 Blood Urea Nitrogen 18 Creatinine 0.87 Glucose Level 111 Calcium Level 8.1 L Phosphorus Level 3.3 Magnesium Level 2.3 Test 12/13/16 07:45 Bedside Glucose 112 Medications Medications Current Medications Lactated Ringer's (Lr) 1,000 ml @ 100 mls/hr Q10H IV Last administered on 02:55; Admin Dose 100 MLS/HR; Start 12/11/16 at 07:00 Amlodipine Besylate (Norvasc) 5 mg DAILY PO Last administered on 12/13/16 08:56 ; Admin Dose 5 MG; Start 12/12/16 at 09:00 Atorvastatin Calcium (Lipitor) 40 mg QHS PO Last administered on 12/12/16 20:07 ; Admin Dose 40 MG; Start 12/11/16 at 21:00 Folic Acid (Folic Acid) 1 mg DAILY PO Last administered on 12/13/16 08:54; Admin Dose 1 MG; Start 12/12/16 at 09:00 Pregabalin (Lyrica) 50 mg BID PO Last administered on 12/13/16 09:01; Admin Dose 50 MG; Start 12/11/16 at 21:00 Pantoprazole (Protonix Tab) 40 mg BID@,18 PO Last administered on 12/13/16 06 :47; Admin Dose 40 MG; Start 12/11/16 at 18:00 Tramadol HCl (Ultram) 50 mg Q6 PO Last administered on 12/13/16 06:48; Admin Dose 50 MG; Start 12/11/16 at 12:00; Stop 12/14/16 at 11:59 Acetaminophen/ Hydrocodone Bitart ([place] (5/325)) 1 tab Q4H PRN PO PAIN LEVEL 1 -3; Start 12/11/16 at 13:30 Acetaminophen/ Hydrocodone Bitart ([place] (5/325)) 2 tab Q4H PRN PO PAIN LEVEL 4 -7 Last administered on 12/12/16 20:07; Admin Dose 2 TAB; Start 12/11/16 at 13:30 Hydromorphone HCl (Dilaudid) 1 mg Q3H PRN IV PAIN LEVEL 8-10; Start 12/11/16 at 13:30 Ondansetron HCl (Zofran Inj) 4 mg Q6H PRN IV NAUSEA AND/OR VOMITING; Start 12/11 at 13:30 Bisacodyl (Dulcolax Supp) 10 mg Q12H PRN SC CONSTIPATION; Start 12/11/16 at 13: 30 Magnesium Hydroxide (Milk Of Mag) 30 ml BID PRN PO CONSTIPATION; Start 12/11/16 at 13:30 Sodium Biphosphate/ Sodium Phosphate (Fleet Enema) 133 ml DAILY PRN SC CONSTIPATION; Start 12/11/16 at 13:30 Docusate Sodium (Colace) 100 mg BID PO Last administered on 12/13/16 08:54; Admin Dose 100 MG; Start 12/11/16 at 21:00 Diphenhydramine HCl (Benadryl) 25 mg Q6H PRN PO PRURITUS; Start 12/11/16 at 13: 30 Valsartan (Diovan) 320 mg DAILY PO Last administered on 12/13/16 08:55; Admin Dose 320 MG; Start 12/12/16 at 09:00 Hydrochlorothiazide (Hydrochlorothiazide) 25 mg DAILY PO Last administered on 08:55; Admin Dose 25 MG; Start 12/12/16 at 09:00 Miscellaneous Information 1 ea NOTE XX ; Start 12/11/16 at 18:30 Glucose (Glutose) 15 gm Q15M PRN PO DECREASED GLUCOSE; Start 12/11/16 at 18:30 Glucose (Glutose) 22.5 gm Q15M PRN PO DECREASED GLUCOSE; Start 12/11/16 at 18:30 Dextrose (D50w Syringe) 25 ml Q15M PRN IV DECREASED GLUCOSE; Start 12/11/16 at 18:30 Dextrose (D50w Syringe) 50 ml Q15M PRN IV DECREASED GLUCOSE; Start 12/11/16 at 18:30 Glucagon (Glucagen) 1 mg Q15M PRN IM DECREASED GLUCOSE; Start 12/11/16 at 18:30 Glucose (Glutose) 15 gm Q15M PRN BUCCAL DECREASED GLUCOSE; Start 12/11/16 at 18: 30 Diagnostic Test (Pha) (Accu-Chek) 1 ea 02 XX ; Start 12/12/16 at 02:00 Aspirin (Ecotrin) 325 mg BID PO Last administered on 12/13/16 08:54; Admin Dose 325 MG; Start 12/12/16 at 09:00 HEATHER ESQUIVEL MD December 13, 2016 11:03
--- NOTE | 2016-12-13 13:18 | DS ---
DATE OF ADMISSION: 12/11/2016 DATE OF DISCHARGE: 12/13/2016 CONDITION UPON DISCHARGE: Stable. ADMITTING DIAGNOSIS: Left hip osteoarthritis. DISCHARGE DIAGNOSIS: Status post left anterior total hip arthroplasty. PROCEDURE PERFORMED: Left hip arthroplasty through the direct anterior approach. HOSPITAL COURSE: This is a 66-year-old male who was seen in the clinic complaining of left hip pain. He had undergone conservative modalities unsuccessfully and it was thought he would benefit from a left anterior total hip arthroplasty. On 12/11/2016 the patient was admitted and taken to the operating room, where he underwent a left anterior total hip arthroplasty. There were no intraoperative complications. The patient tolerated the procedure well. He was taken to the recovery room in stable condition. Pain was well controlled with oral pain medication. He was started on aspirin and SCDs for DVT prophylaxis. He remained hemodynamically stable and neurovascularly intact throughout his hospital stay. He began physical therapy on postoperative day 1 and was deemed stable for discharge on postoperative day 2. Prior to discharge the incision was inspected and noted to be clean, dry and intact. Dressing changes were done prior to the patient going home. LABORATORY ANALYSIS: Hemoglobin 11.7, hematocrit 35.4. Chemistry panel was within normal limits. DISCHARGE MEDICATIONS: 1. Jasper 5/325 mg. 2. Tramadol 50 mg. 3. Aspirin 325 mg. 4. Protonix 40 mg. 5. Additionally, the patient should resume all of his normal home medications. DISCHARGE INSTRUCTIONS: The patient will be discharged home in stable condition. He is to resume a normal diet. He is weightbearing as tolerated on the left lower extremity. He will begin physical therapy with home health. He will be discharged home with the medications noted above and is to resume all of his normal home medication. The patient is to call the office or go to the emergency room for any concerns including increased redness, swelling, drainage , fever or any concerns regarding the operation or site of incision. FOLLOWUP: The patient is to follow up in the office on 12/22/2016. Dictated By: UMM MACK for JACK HOUGH/PAPITO Conf#: [id number] DID#: [id number] [id number]
== END 2016-12-13 13:15 | disposition home health service (06) | DRG 470 ==
LOC: REC 08:41 → MERGE 12:01 → MS1 17:50
PROVIDERS: ADMIT Orthopaedic Surgery; ATTEND Orthopaedic Surgery
PROC: 0SRB04A Replacement of Left Hip Joint with Ceramic on Polyethylene Synthetic Substitute, Uncemented, Open Approach (ICD-10-PCS; principal; 2016-12-11 10:30)
DX: M16.12 Unilateral primary osteoarthritis, left hip (principal); E83.42 Hypomagnesemia; I10 Essential (primary) hypertension; E78.5 Hyperlipidemia, unspecified; E11.9 Type 2 diabetes mellitus without complications; Z79.4 Long term (current) use of insulin; Z79.82 Long term (current) use of aspirin; Z87.891 Personal history of nicotine dependence
CPT/HCPCS: 72170; 73530; 80048; 81003; 82962; 83735; 84100; 85014; 85018; 86850; 86900; 86901; 86920; 87081; 87086; 88304; 88311; 97110; 97116; 97162; 97530; J1940; C1776; C9290; J0330; J0360; J0690; J1100; J1815; J2250; J2405; J2710; J3010; J3370; J3475; J7120

== ENCOUNTER → 2016-12-22 | Outpatient (CLI) | payer MEDICARE, BC ==
[~2016-12-22] MED LIST changes: +ASPI325T32 PO; +ATOR40TA68 PO; -BUPIVACAINE LIPOSOME/PF 266 MG/20 ML VIAL INFIL SCH; -CEFAZOLIN 1 GM INJ ONE; -CEFAZOLIN 2GM/50 ML (PMX) 50 ML X1 BEFORE INCISION IVPB SCH; -CELECOXIB 400 MG PO X1 DOSE PO SCH; -DEXAMETHASONE 4 MG/ML 1 ML INJ ONE; -EXPAREL NOTE (BUPIVICAINE LIPOSOMAL) XX SCH; -FENTAnyl 50 MCG/ML VIAL ONE; +FOLI-49 PO; -GLYCOPYRROLATE 0.4 MG INJ ONE; +HYDR-906 PO; -LIDOCAINE 2% (SDV) 5 ML INJ ONE; +METF500T4 PO; -MIDAZOLAM 1 MG/ML 2 ML INJ ONE; -NEOSTIGMINE 3 MG/3 ML SYRINGE ONE; -ONDANSETRON 4 MG INJ ONE; -PAIN COCKTAIL-CEFUROXIME IRR SCH; +PANT40TA4 PO; -PREGABALIN 300 MG PO X1 PO SCH; -PROPOFOL 20 ML ONE; -ROCURONIUM 50 MG INJ ONE; -SOD CHLORIDE 0.9% IV SCH; -SOD CHLORIDE 0.9% IVPB SCH; -SUCCINYLCHOLINE CHLORIDE 100 MG/5 ML SYG IV ONE; +TRAM50TA2 PO; -TRANEXAMIC ACID IV SCH; -TRANEXAMIC ACID IVPB SCH; -oxyCODONE (CR) 10 MG TAB [oxyCONTIN] X1 DOSE PO SCH; -traMADOL 50 MG TAB X 1 DOSE PO SCH
--- NOTE | 2016-12-22 13:33 | RADRPT ---
PROCEDURE: XR pelvis/left hip. CLINICAL INDICATION: Hip pain TECHNIQUE: AP pelvis/lateral left hip view performed. COMPARISON: 12/11/2016 FINDINGS: There is a left total hip replacement. There is no evidence of loosening of the prosthesis. No hardw are failure identified. Skin sejal are present laterally. There is mild right hip osteoarthrosis. This is associated with joint space narrowing, subchondral s clerosis and osteophytosis. There is normal osseous mineralization. No fractures or osseous lesion s are identified. The soft tissues are unremarkable. IMPRESSION: Left total hip replacement. Mild right hip osteoarthrosis. RPTAT: HGDB .Anuj Ball MD, MD Date Time Electronically viewed and signed by .Anuj Ball MD, on 12/22/2016 13:33 .B/
--- NOTE | 2016-12-23 05:56 | HKNOTE ---
DATE OF SERVICE: 12/22/2016 INTERVAL HISTORY: The patient presents today for his first postoperative evaluation on his left hip. He is 10 days status post left anterior total hip arthroplasty. He is doing excellent overall. He is ambulatory without any assistive devices. He denies any fevers or chills. He only took the pain medicine for one weekend and no longer needs it. He is taking the aspirin twice daily as recommended. He presents today for his first postoperative evaluation. PHYSICAL EXAMINATION: GENERAL: Today, he is alert and oriented x4 and in no acute distress. He is ambulatory without any assistive device. SKIN: Exam of the incision demonstrates it to be clean, dry, and intact. [place] are in place. There is no erythema or warmth noted. There is no significant soft tissue swelling. He has no pain with passive range of motion of the left hip. Homans sign is negative. Compartments are soft. He is neurovascularly intact distally. IMAGING: X-rays of left hip were obtained today and reviewed by me. They demonstrate good anatomic alignment with no fractures or dislocations identified. ASSESSMENT: 10 days status post left anterior total hip arthroplasty, doing very well overall. PLAN: The sejal were removed today, and Steri-Strips were applied. He is ambulatory without any assistive devices and can continue as tolerated. He should continue aspirin 325 mg twice daily for 6 weeks from the date of surgery for DVT prophylaxis. We will see him back in 4 weeks for repeat evaluation. Dictated By: UMM MACK for JACK HOUGH/PAPITO Conf#: [id number] DID#: [id number]
== END | disposition home or self-care (01) ==
LOC: HKI 09:50 → MERGE 10:00
PROVIDERS: ATTEND Orthopaedic Surgery
DX: Z47.1 Aftercare following joint replacement surgery (principal); Z96.642 Presence of left artificial hip joint; Z48.02 Encounter for removal of sutures; M16.11 Unilateral primary osteoarthritis, right hip
CPT/HCPCS: 73502